=== PATIENT | female | born 1945 | race Caucasian/White ===

== ENCOUNTER 2021-11-17 12:52 | Outpatient (CLI) | payer MEDICARE | END 2021-11-17 12:53 | disposition home or self-care (01) | LOC: BICULT 12:52 | PROVIDERS: ATTEND Internal Medicine Nephrology | DX: N18.30 Chronic kidney disease, stage 3 unspecified (principal); N28.1 Cyst of kidney, acquired; N32.89 Other specified disorders of bladder | CPT/HCPCS: 76770 ==